=== PATIENT | female | born 1990 | race Caucasian/White ===

== ENCOUNTER 2017-03-01 09:03 | Emergency (ER) | payer OTHER ==
[~2017-03-01] VITALS: Ht 160 cm; Wt 72.7 kg
[~2017-03-01 09:03] MED LIST: AMOXICILLIN500 MG PO; IMITREX25 MG PO; LORTAB5 OR; MACRODANTIN100 MG OR; METROGEL VAG0.75 % VA; NAPROSYN500 MG PO; NO; NO HOME MEDS; ONDANSETRON ODT8 MG PO; ONDANSETRON4 MG OR; PENICILLN VK500 M1 OR; PHENERGAN25 MG RE; PRENATABS OR; REGLAN10 MG PO; TESSALON PER100 MG PO; TRAMADOL HYDROC50 MG PO; TRANSDERM-SCOP1.5 MG TD; TYLENOL325 MG PO; ULTRAM50 M1 OR; ULTRAM50 M1 PO; ZITHROMAX250 MG PO; ZOFRAN ODT4 MG PO; ZOFRAN4 M1 OR; ZPAK PO
[2017-03-01 09:40] LABS: URINE BILIRUBIN - DIPSTICK NEGATIVE (NEGATIVE); URINE BLOOD DIPSTICK NEGATIVE (NEGATIVE); URINE COLOR YELLOW; URINE GLUCOSE - DIPSTICK NEGATIVE (NEGATIVE); URINE KETONE NEGATIVE (NEGATIVE); URINE NITRITE - DIPSTICK NEGATIVE (Negative); URINE PH 5.5 (4.5-8.0); URINE PROTEIN - DIPSTICK NEGATIVE (NEG-TRACE); URINE SPECIFIC GRAVITY >=1.030; URINE UROBILINOGEN - DIPSTICK 0.2 E.U./dL (0.2)
[2017-03-01 09:44] LABS: AMYLASE 40 u/l (30-110); LIPASE 122 u/l (23-300)
[2017-03-01 09:54] LABS: URINE CLARITY HAZY; URINE LEUK ESTERASE MODERATE (NEGATIVE)
[2017-03-01 09:55] LABS: URINE BACTERIA FEW hpf; URINE EPITHELIAL CELLS MODERATE EPI/hpf (0-FEW)
[2017-03-01] MEDS ORDERED: ZOFRAN ODT4 MG PO (11:58)
[2017-03-01] MEDS ORDERED: ULTRAM50 M1 PO (11:58)
[2017-03-01] MEDS ORDERED: CIPROFLOXACN500 MG PO (11:58)
[2017-03-01 12:11] VITALS: BP 93/59
== END 2017-03-01 12:25 | disposition home or self-care (01) | DRG 690 ==
LOC: ED 09:03
PROVIDERS: Emergency Medicine
DX: N39.0 Urinary tract infection, site not specified (principal); R10.9 Unspecified abdominal pain; R10.31 Right lower quadrant pain
CPT/HCPCS: Q9967

== ENCOUNTER 2017-03-05 07:02 | Emergency (ER) | payer OTHER ==
[~2017-03-05] VITALS: Ht 160 cm; Wt 75.0 kg
[~2017-03-05 07:02] MED LIST changes: +CIPROFLOXACN500 MG PO
[2017-03-05 09:06] LABS: HEMATOCRIT 34.3 % (37.0-47.0); HEMOGLOBIN 10.6 g/dl (12.0-16.0); IMMATURE GRANULOCYTES 0.4 % (0.0-1.0); MEAN CELL VOLUME 77.4 fL CALC (80.0-100.0); MEAN CORPUSCULAR HGB 23.9 pG CALC (26.0-32.0); MEAN CORPUSCULAR HGB CONC 30.9 g/L CALC (32.0-36.0); NEUT# 4.91 thou/uL (2.00-7.15); RED BLOOD COUNT 4.43 mill/uL (4.20-5.60); RED CELL DISTRI WIDTH 13.8 % (11.5-15.5)
[2017-03-05 09:30] LABS: ALBUMIN 4.4 g/dL (3.2-5.0); ALKALINE PHOSPHATASE 40 u/l (38-126); ANION GAP 16 (6-22 (CALC)); BILIRUBIN, TOTAL 0.5 mg/dL (0.0-1.4); BUN 16 mg/dL (7-17); BUN/CREATININE RATIO 25 (12-20 (CALC)); CALCIUM 9.1 mg/dL (8.4-10.2); CARBON DIOXIDE 22 mmol/l (22-30); CHLORIDE 108 mmol/l (95-108); CREATININE 0.6 mg/dL (0.5-1.0); GFR > 60 ML/MIN (>=60 (CALC)); GFR FOR AFR.AMER. > 60 ML/MIN (>=60 (CALC)); GLUCOSE 82 mg/dL (65-105); POTASSIUM 4.2 mmol/l (3.5-5.1); SGOT/AST 23 u/l (14-36); SGPT/ALT 25 u/l (9-52); SODIUM 142 mmol/l (137-146); TOTAL PROTEIN 7.3 g/dL (6.3-8.2)
[2017-03-05 09:55] LABS: URINE BILIRUBIN - DIPSTICK NEGATIVE (NEGATIVE); URINE BLOOD DIPSTICK LARGE (NEGATIVE); URINE CLARITY TURBID; URINE COLOR YELLOW; URINE GLUCOSE - DIPSTICK NEGATIVE (NEGATIVE); URINE KETONE NEGATIVE (NEGATIVE); URINE LEUK ESTERASE NEGATIVE (NEGATIVE); URINE NITRITE - DIPSTICK NEGATIVE (Negative); URINE PH 5.5 (4.5-8.0); URINE PROTEIN - DIPSTICK NEGATIVE (NEG-TRACE); URINE SPECIFIC GRAVITY >=1.030; URINE UROBILINOGEN - DIPSTICK 0.2 E.U./dL (0.2)
[2017-03-05 10:16] LABS: URINE BACTERIA FEW hpf; URINE RBC >100 RBC/hpf (0-5); URINE SQUAMOUS EPITHELIAL CELL FEW EPI/hpf (0-FEW)
[2017-03-05] MEDS ORDERED: PROVERA10 MG PO (10:38)
[2017-03-05] MEDS ORDERED: MOTRIN800 MG PO (10:38)
[2017-03-05 10:46] VITALS: BP 110/71
== END 2017-03-05 11:13 | disposition home or self-care (01) | DRG 761 ==
LOC: ED 07:02
PROVIDERS: Emergency Medicine
DX: N93.8 Other specified abnormal uterine and vaginal bleeding (principal)

== ENCOUNTER 2019-01-07 14:25 | Emergency (ER) | payer OTHER ==
[~2019-01-07] VITALS: Ht 160 cm; Wt 81.0 kg
[~2019-01-07 14:25] MED LIST changes: +MOTRIN800 MG PO; +PROVERA10 MG PO
[2019-01-07 14:55] LABS: URINE BLOOD DIPSTICK NEGATIVE (NEGATIVE); URINE COLOR YELLOW; URINE GLUCOSE - DIPSTICK NEGATIVE (NEGATIVE); URINE KETONE 15 mg/dL (NEGATIVE); URINE LEUK ESTERASE NEGATIVE (NEGATIVE); URINE NITRITE - DIPSTICK NEGATIVE (Negative); URINE PH 5.5 (4.5-8.0); URINE PROTEIN - DIPSTICK TRACE mg/dL (NEG-TRACE); URINE SPECIFIC GRAVITY >=1.030; URINE UROBILINOGEN - DIPSTICK 0.2 E.U./dL (0.2)
[2019-01-07 14:58] LABS: URINE BILIRUBIN - DIPSTICK NEGATIVE (NEGATIVE)
[2019-01-07 15:00] LABS: HEMATOCRIT 35.7 % (37.0-47.0); HEMOGLOBIN 10.9 g/dl (12.0-16.0); IMMATURE GRANULOCYTES 0.4 % (0.0-5.0); MEAN CELL VOLUME 74.4 fL CALC (80.0-100.0); MEAN CORPUSCULAR HGB 22.7 pG CALC (26.0-32.0); MEAN CORPUSCULAR HGB CONC 30.5 g/L CALC (32.0-36.0); NEUT# 5.24 thou/uL (2.00-7.15); RED BLOOD COUNT 4.8 mill/uL (4.20-5.60); RED CELL DISTRI WIDTH 14.1 % (11.5-15.5)
[2019-01-07 15:08] LABS: ALBUMIN 4.9 g/dL (3.2-5.0); ALKALINE PHOSPHATASE 53 u/l (38-126); ANION GAP 16 (6-22 (CALC)); BILIRUBIN, TOTAL 0.9 mg/dL (0.0-1.4); BUN 13 mg/dL (7-17); BUN/CREATININE RATIO 23 (12-20 (CALC)); CARBON DIOXIDE 20 mmol/l (22-30); CHLORIDE 108 mmol/l (95-108); CREATININE 0.6 mg/dL (0.5-1.0); GFR > 60 ML/MIN (>=60 (CALC)); GFR FOR AFR.AMER. > 60 ML/MIN (>=60 (CALC)); LIPASE 100 u/l (23-300); POTASSIUM 4.1 mmol/l (3.5-5.1); SGOT/AST 15 u/l (14-36); SODIUM 140 mmol/l (137-146); TOTAL PROTEIN 7.6 g/dL (6.3-8.2)
[2019-01-07] MEDS ORDERED: ONDANSETRON4 MG PO (16:18)
[2019-01-07 16:23] VITALS: BP 114/63
== END 2019-01-07 16:38 | disposition home or self-care (01) ==
LOC: ED 14:25
PROVIDERS: Family Medicine
DX: K52.9 Noninfective gastroenteritis and colitis, unspecified (principal); R10.11 Right upper quadrant pain; R11.2 Nausea with vomiting, unspecified; R10.12 Left upper quadrant pain
CPT/HCPCS: Q9967

== ENCOUNTER 2019-03-15 23:28 | Emergency (ER) | payer OTHER ==
[~2019-03-15] VITALS: Ht 160 cm; Wt 82.0 kg
[~2019-03-15 23:28] MED LIST changes: +ONDANSETRON4 MG PO
[2019-03-16 01:40] VITALS: BP 116/71
== END 2019-03-16 01:45 | disposition home or self-care (01) ==
LOC: ED 23:28
DX: S60.212A Contusion of left wrist, initial encounter (principal); W22.8XXA Striking against or struck by other objects, initial encounter; Y92.009 Unspecified place in unspecified non-institutional (private) residence as the place of occurrence of the external cause

== ENCOUNTER 2019-06-01 07:16 | Emergency (ER) | payer SELFPAY ==
[~2019-06-01] VITALS: Ht 160 cm; Wt 77.3 kg
[2019-06-01] MEDS ORDERED: ZPAK PO ×2 (08:34→08:38)
[2019-06-01] MEDS ORDERED: CHERATUSSIN PO (08:37)
[2019-06-01 08:47] VITALS: BP 115/60
== END 2019-06-01 08:53 | disposition home or self-care (01) | DRG 153 ==
LOC: ED 07:16
DX: J06.9 Acute upper respiratory infection, unspecified (principal)

== ENCOUNTER 2019-06-04 11:39 | Emergency (ER) | payer SELFPAY ==
[~2019-06-04] VITALS: Ht 160 cm; Wt 82.2 kg
[~2019-06-04 11:39] MED LIST changes: +CHERATUSSIN PO
[2019-06-04 13:12] LABS: HEMATOCRIT 32.8 % (37.0-47.0); HEMOGLOBIN 9.7 g/dl (12.0-16.0); IMMATURE GRANULOCYTES 0.4 % (0.0-5.0); MEAN CELL VOLUME 72.7 fL CALC (80.0-100.0); MEAN CORPUSCULAR HGB 21.5 pG CALC (26.0-32.0); MEAN CORPUSCULAR HGB CONC 29.6 g/L CALC (32.0-36.0); NEUT# 6.41 thou/uL (2.00-7.15); RED BLOOD COUNT 4.51 mill/uL (4.20-5.60); RED CELL DISTRI WIDTH 14.6 % (11.5-15.5)
[2019-06-04 13:24] LABS: ALBUMIN 4.5 g/dL (3.2-5.0); ALKALINE PHOSPHATASE 57 u/l (38-126); ANION GAP 17 (6-22 (CALC)); BUN 12 mg/dL (7-17); BUN/CREATININE RATIO 21 (12-20 (CALC)); CARBON DIOXIDE 22 mmol/l (22-30); CHLORIDE 106 mmol/l (95-108); CREATININE 0.6 mg/dL (0.5-1.0); GFR > 60 ML/MIN (>=60 (CALC)); GFR FOR AFR.AMER. > 60 ML/MIN (>=60 (CALC)); POTASSIUM 3.8 mmol/l (3.5-5.1); SGOT/AST 19 u/l (14-36); SODIUM 141 mmol/l (137-146); TOTAL PROTEIN 7.8 g/dL (6.3-8.2)
[2019-06-04 13:40] LABS: BILIRUBIN, TOTAL 0.4 mg/dL (0.0-1.4)
[2019-06-04 14:35] VITALS: BP 119/63
== END 2019-06-04 14:35 | disposition home or self-care (01) | DRG 153 ==
LOC: ED 11:39
PROVIDERS: Family Medicine
DX: J02.9 Acute pharyngitis, unspecified (principal)
CPT/HCPCS: J0561; J2540

== ENCOUNTER 2022-01-18 14:14 | Emergency (ER) | payer BC ==
[~2022-01-18] VITALS: Ht 160 cm; Wt 98.2 kg
[2022-01-18 14:25] VITALS: BP 115/76
[2022-01-18 14:46] VITALS: BP 117/67
[2022-01-18 15:01] VITALS: BP 113/74
[2022-01-18 15:30] VITALS: BP 104/78
[2022-01-18] MEDS ORDERED: BENADRYL25 M1 PO ×2 (15:36→15:48)
[2022-01-18] MEDS ORDERED: PREDNISONE20 MG PO ×2 (15:36→15:48)
[2022-01-18] MEDS ORDERED: VISTARIL25 MG PO ×2 (15:36→15:48)
[2022-01-18] MEDS ORDERED: EPIPEN 2-P0.3 MG/0.3 IM ×2 (15:36→15:48)
[2022-01-18 15:45] VITALS: BP 106/65
[2022-01-18 15:57] VITALS: BP 110/70
== END 2022-01-18 15:57 | disposition home or self-care (01) | DRG 923 ==
LOC: ED 14:14
DX: T78.1XXA Other adverse food reactions, not elsewhere classified, initial encounter (principal); R06.2 Wheezing; K21.9 Gastro-esophageal reflux disease without esophagitis; X58.XXXA Exposure to other specified factors, initial encounter

== ENCOUNTER 2022-02-16 00:27 | Emergency (ER) | payer BC ==
[~2022-02-16] VITALS: Ht 160 cm; Wt 94.5 kg
[~2022-02-16 00:27] MED LIST changes: +BENADRYL25 M1 PO; +EPIPEN 2-P0.3 MG/0.3 IM; +PREDNISONE20 MG PO; +VISTARIL25 MG PO
[2022-02-16 00:37] VITALS: BP 129/68
[2022-02-16 01:01] VITALS: BP 113/70
[2022-02-16 01:02] LABS: HEMOGLOBIN 9.4 g/dl (12.0-16.0); IMMATURE GRANULOCYTES 0.1 % (0.0-5.0); MEAN CELL VOLUME 70.5 fL CALC (80.0-100.0); MEAN CORPUSCULAR HGB 20.1 pG CALC (26.0-32.0); MEAN CORPUSCULAR HGB CONC 28.5 g/dL CAL (32.0-36.0); NEUT# 5.92 thou/uL (2.00-7.15); RED BLOOD COUNT 4.68 mill/uL (4.20-5.60); RED CELL DISTRI WIDTH 16.9 % (11.5-15.5)
[2022-02-16 01:39] VITALS: BP 117/72
[2022-02-16] MEDS ORDERED: ROBITUSSIN AC10 ML PO (01:54)
[2022-02-16 02:00] VITALS: BP 111/69
[2022-02-16 02:04] VITALS: BP 111/69
== END 2022-02-16 02:04 | disposition home or self-care (01) | DRG 153 ==
LOC: ED 00:27
PROVIDERS: Family Medicine
DX: J06.9 Acute upper respiratory infection, unspecified (principal); Z20.822 Contact with and (suspected) exposure to COVID-19

== ENCOUNTER 2022-05-01 07:37 | Emergency (ER) | payer BC ==
[~2022-05-01] VITALS: Ht 160 cm; Wt 90.9 kg
[~2022-05-01 07:37] MED LIST changes: +ROBITUSSIN AC10 ML PO
[2022-05-01 07:53] VITALS: BP 110/78
[2022-05-01 08:24] VITALS: BP 117/83
[2022-05-01 08:31] VITALS: BP 115/75
[2022-05-01 08:39] LABS: URINE BILIRUBIN - DIPSTICK NEGATIVE (NEGATIVE); URINE BLOOD DIPSTICK NEGATIVE (NEGATIVE); URINE COLOR YELLOW; URINE GLUCOSE - DIPSTICK NEGATIVE (NEGATIVE); URINE KETONE NEGATIVE (NEGATIVE); URINE LEUK ESTERASE TRACE (NEGATIVE); URINE PROTEIN - DIPSTICK NEGATIVE (NEG-TRACE); URINE SPECIFIC GRAVITY >=1.030; URINE UROBILINOGEN - DIPSTICK 0.2 E.U./dL (0.2)
[2022-05-01 08:40] LABS: URINE NITRITE - DIPSTICK NEGATIVE (Negative)
[2022-05-01 08:56] LABS: HEMATOCRIT 34.1 % (37.0-47.0); IMMATURE GRANULOCYTES 0.1 % (0.0-5.0); MEAN CELL VOLUME 70.6 fL CALC (80.0-100.0); MEAN CORPUSCULAR HGB 20.7 pG CALC (26.0-32.0); MEAN CORPUSCULAR HGB CONC 29.3 g/dL CAL (32.0-36.0); RED BLOOD COUNT 4.83 mill/uL (4.20-5.60)
[2022-05-01 09:01] VITALS: BP 106/72
[2022-05-01 09:08] LABS: ALBUMIN 4.3 g/dL (3.2-5.0); ALKALINE PHOSPHATASE 55 u/l (38-126); ANION GAP 13 (6-22 (CALC)); BILIRUBIN, TOTAL 0.7 mg/dL (0.0-1.4); BUN 12 mg/dL (7-17); BUN/CREATININE RATIO 17 (12-20 (CALC)); CARBON DIOXIDE 24 mmol/l (22-30); CHLORIDE 108 mmol/l (95-108); CREATININE 0.7 mg/dL (0.5-1.0); GFR FOR AFR.AMER. > 60 ML/MIN (>=60 (CALC)); GFR OTHER RACES > 60 ML/MIN (>=60 (CALC)); SGOT/AST 20 u/l (14-36); SODIUM 141 mmol/l (137-146); TOTAL PROTEIN 7.5 g/dL (6.3-8.2)
[2022-05-01] MEDS ORDERED: FLEXERIL5 M1 PO (09:18)
[2022-05-01] MEDS ORDERED: MELOXICAM15 MG PO (09:18)
[2022-05-01 09:38] VITALS: BP 106/72
== END 2022-05-01 09:56 | disposition home or self-care (01) | DRG 392 ==
LOC: ED 07:37
PROVIDERS: Internal Medicine
DX: R10.9 Unspecified abdominal pain (principal); D72.829 Elevated white blood cell count, unspecified

== ENCOUNTER 2022-05-02 21:51 | Emergency (ER) | payer BC ==
[~2022-05-02] VITALS: Ht 160 cm; Wt 90.0 kg
[~2022-05-02 21:51] MED LIST changes: +FLEXERIL5 M1 PO; +MELOXICAM15 MG PO
[2022-05-02 22:01] VITALS: BP 111/68
[2022-05-02 22:50] VITALS: BP 89/52
[2022-05-02 22:50] LABS: URINE BILIRUBIN - DIPSTICK NEGATIVE (NEGATIVE); URINE BLOOD DIPSTICK TRACE-INTACT (NEGATIVE); URINE COLOR YELLOW; URINE GLUCOSE - DIPSTICK NEGATIVE (NEGATIVE); URINE KETONE NEGATIVE (NEGATIVE); URINE LEUK ESTERASE NEGATIVE (NEGATIVE); URINE PH 5.5 (4.5-8.0); URINE PROTEIN - DIPSTICK TRACE mg/dL (NEG-TRACE); URINE SPECIFIC GRAVITY >=1.030
[2022-05-02 22:56] LABS: HEMATOCRIT 31.9 % (37.0-47.0); HEMOGLOBIN 9.5 g/dl (12.0-16.0); IMMATURE GRANULOCYTES 0.2 % (0.0-5.0); MEAN CELL VOLUME 69.7 fL CALC (80.0-100.0); MEAN CORPUSCULAR HGB 20.7 pG CALC (26.0-32.0); MEAN CORPUSCULAR HGB CONC 29.8 g/dL CAL (32.0-36.0); NEUT# 16.01 thou/uL (2.00-7.15); RED BLOOD COUNT 4.58 mill/uL (4.20-5.60); RED CELL DISTRI WIDTH 17.2 % (11.5-15.5)
[2022-05-02 22:57] LABS: URINE NITRITE - DIPSTICK NEGATIVE (Negative)
[2022-05-02 23:00] VITALS: BP 103/58
[2022-05-02 23:19] LABS: ALBUMIN 4.3 g/dL (3.2-5.0); ALKALINE PHOSPHATASE 56 u/l (38-126); AMYLASE 56 u/l (30-110); ANION GAP 14 (6-22 (CALC)); BUN 11 mg/dL (7-17); BUN/CREATININE RATIO 14 (12-20 (CALC)); CARBON DIOXIDE 25 mmol/l (22-30); CHLORIDE 103 mmol/l (95-108); CREATININE 0.8 mg/dL (0.5-1.0); GFR FOR AFR.AMER. > 60 ML/MIN (>=60 (CALC)); GFR OTHER RACES > 60 ML/MIN (>=60 (CALC)); LIPASE 72 u/l (23-300); POTASSIUM 3.7 mmol/l (3.5-5.1); SGOT/AST 18 u/l (14-36); SODIUM 139 mmol/l (137-146); TOTAL PROTEIN 7.6 g/dL (6.3-8.2)
[2022-05-03 00:01] VITALS: BP 97/52
[2022-05-03 00:15] VITALS: BP 96/60
[2022-05-03 00:31] VITALS: BP 114/76
[2022-05-03 01:01] VITALS: BP 114/76
[2022-05-03] MEDS ORDERED: CIPROFLOXACN500 MG PO (01:06)
== END 2022-05-03 01:01 | disposition home or self-care (01) | DRG 392 ==
LOC: ED 21:51 → ED-I 05-03 00:10 → ED 05-03 01:01
PROVIDERS: Emergency Medicine
DX: R10.31 Right lower quadrant pain (principal); D72.829 Elevated white blood cell count, unspecified
CPT/HCPCS: Q9967

== ENCOUNTER 2022-07-09 14:35 | Emergency (ER) | payer BC ==
[~2022-07-09] VITALS: Ht 160 cm; Wt 91.0 kg
[2022-07-09] MEDS ORDERED: KEFLEX500 MG PO (18:20)
[2022-07-09 18:21] VITALS: BP 114/70
== END 2022-07-09 18:27 | disposition home or self-care (01) | DRG 605 ==
LOC: ED 14:35
DX: S80.02XA Contusion of left knee, initial encounter (principal); V00.121A Fall from non-in-line roller-skates, initial encounter; S89.92XA Unspecified injury of left lower leg, initial encounter; S80.211A Abrasion, right knee, initial encounter
CPT/HCPCS: L1830

== ENCOUNTER 2023-02-11 22:28 | Emergency (ER) | payer OTHER ==
[~2023-02-11] VITALS: Ht 160 cm; Wt 81.6 kg
[~2023-02-11 22:28] MED LIST changes: +KEFLEX500 MG PO
[2023-02-11 22:37] VITALS: BP 102/62
[2023-02-11 22:45] VITALS: BP 112/64
[2023-02-11 23:00] VITALS: BP 103/56
[2023-02-11 23:15] VITALS: BP 114/66
[2023-02-11 23:30] VITALS: BP 96/61
[2023-02-11 23:45] VITALS: BP 105/60
[2023-02-11 23:49] LABS: BASO% 0.4 % (0-3); EOS% 0.3 % (0-8); IMMATURE GRANULOCYTES 0.1 % (0.0-5.0); LYMPH% 12.7 % (15-41); MEAN CORPUSCULAR HGB 28.2 pG CALC (26.0-32.0); MEAN CORPUSCULAR HGB CONC 32.2 g/dL CAL (32.0-36.0); MONO% 6.6 % (2-13); NEUT# 9.27 thou/uL (2.00-7.15); NEUT% 79.9 % (42-76); RED BLOOD COUNT 4.4 mill/uL (4.20-5.60); RED CELL DISTRI WIDTH 13.7 % (11.5-15.5)
[2023-02-11 23:52] LABS: HEMATOCRIT 38.5 % (37.0-47.0); HEMOGLOBIN 12.4 g/dl (12.0-16.0); MEAN CELL VOLUME 87.5 fL CALC (80.0-100.0)
[2023-02-12] VITALS: BP 91/58
[2023-02-12 00:03] LABS: ALBUMIN 4.4 g/dL (3.2-5.0); ALKALINE PHOSPHATASE 48 u/l (38-126); ANION GAP 14 (6-22 (CALC)); BUN 12 mg/dL (7-17); BUN/CREATININE RATIO 21 (12-20 (CALC)); CARBON DIOXIDE 20 mmol/l (22-30); CHLORIDE 109 mmol/l (95-108); CREATININE 0.6 mg/dL (0.5-1.0); GFR FOR AFR.AMER. > 60 ML/MIN (>=60 (CALC)); GFR OTHER RACES > 60 ML/MIN (>=60 (CALC)); POTASSIUM 3.5 mmol/l (3.5-5.1); SGOT/AST 17 u/l (14-36); SODIUM 140 mmol/l (137-146); TOTAL PROTEIN 7.1 g/dL (6.3-8.2)
[2023-02-12 00:15] VITALS: BP 98/59
[2023-02-12 00:30] VITALS: BP 99/62
[2023-02-12 00:45] VITALS: BP 101/61
[2023-02-12 01:00] VITALS: BP 109/63
== END 2023-02-12 02:16 | disposition home or self-care (01) | DRG 313 ==
LOC: ED 22:28
PROVIDERS: Emergency Medicine
DX: R07.89 Other chest pain (principal); K21.9 Gastro-esophageal reflux disease without esophagitis

== ENCOUNTER 2024-11-20 02:44 | Emergency (ER) | payer BC ==
[~2024-11-20] VITALS: Ht 162.6 cm; Wt 86.0 kg
[~2024-11-20 02:44] MED LIST changes: +FLORINEF0.1 MG PO; +MIDODRINE HYDROC5 MG; +PEPCID AC10 MG PO
[2024-11-20 04:06] LABS: URINE BLOOD DIPSTICK Negative (NEGATIVE); URINE GLUCOSE - DIPSTICK Negative (NEGATIVE); URINE KETONE Trace mg/dL (NEGATIVE); URINE LEUK ESTERASE Negative (NEGATIVE); URINE NITRITE - DIPSTICK Negative (Negative); URINE PH 5.5 (4.5-8.0); URINE PROTEIN - DIPSTICK 30 mg/dL (NEG-TRACE); URINE SPECIFIC GRAVITY >=1.030; URINE UROBILINOGEN - DIPSTICK 0.2 E.U./dL (0.2)
[2024-11-20 04:08] LABS: URINE COLOR Yellow
[2024-11-20 04:14] LABS: URINE MUCUS RARE hpf (NONE-FEW); URINE RBC 0-2 RBC/hpf (0-5); URINE SQUAMOUS EPITHELIAL CELL MANY EPI/hpf (0-FEW)
[2024-11-20 05:48] VITALS: BP 119/89
== END 2024-11-20 05:48 | disposition home or self-care (01) | DRG 313 ==
LOC: ED 02:44
PROVIDERS: Emergency Medicine
DX: R07.89 Other chest pain (principal); Z95.818 Presence of other cardiac implants and grafts; Z20.822 Contact with and (suspected) exposure to COVID-19